=== PATIENT | female | born 1940 | race Caucasian/White ===

== ENCOUNTER → 2016-07-16 | Outpatient (CLI) | payer BC ==
[~2016-07-16] MED LIST: COZAAR100 MG PO; FISH OIL 1000MG1 CAP PO; MULTI VITAMINS1 TAB PO; VITAMINC1000TA; ZOCOR 40MG40 MG PO
== END ==
LOC: MC.RAD 09:22
DX: Z12.31 Encounter for screening mammogram for malignant neoplasm of breast (principal)

== ENCOUNTER → 2017-08-27 | Outpatient (CLI) | payer BC | LOC: MC.RAD 08:48 | DX: Z12.31 Encounter for screening mammogram for malignant neoplasm of breast (principal) ==

== ENCOUNTER 2018-04-22 11:34 | Emergency (ER) | payer BC ==
[~2018-04-22] VITALS: Ht 154.9 cm; Wt 61.4 kg
[2018-04-22] MEDS ORDERED: ADVIL200 MG PO (11:51)
[2018-04-22] MEDS ORDERED: HCTZ 25MG TAB25 MG PO (12:34)
[2018-04-22 12:39] VITALS: BP 133/73; PULSE 73; TEMP 97.3
== END 2018-04-22 12:39 | disposition home or self-care (01) ==
LOC: COL.ER 11:34
DX: I10 Essential (primary) hypertension (principal); E78.00 Pure hypercholesterolemia, unspecified

== ENCOUNTER → 2018-09-05 | Outpatient (CLI) | payer BC ==
[~2018-09-05] MED LIST changes: +ADVIL200 MG PO; +HCTZ 25MG TAB25 MG PO
== END ==
LOC: MC.RAD 09:50
DX: Z12.31 Encounter for screening mammogram for malignant neoplasm of breast (principal)

== ENCOUNTER 2023-11-22 14:23 | Emergency (ER) | payer MEDICARE, BC ==
[~2023-11-22] VITALS: Ht 157.5 cm; Wt 63.6 kg
[~2023-11-22 14:23] MED LIST changes: +ALEVE PM PO; +APRESOLINE 10MG10 MG PO; +LASIX 20MG TABL20 MG PO; +NORVASC 5MG5 MG/TAB PO; +PRILOTC PO; +ZOFRAN ODT4 MG PO
[2023-11-22 14:35] VITALS: TEMP 97.8
[2023-11-22 16:12] LABS: COLLECTION METHOD CLEAN CATCH
[2023-11-22 16:17] LABS: PH 6.5 (5.0-8.5); URINE APPEARANCE CLEAR (CLEAR/HAZY); URINE BLOOD NEGATIVE (NEGATIVE); URINE COLOR YELLOW (YELLOW); URINE GLUCOSE NEGATIVE (NEGATIVE); URINE KETONE NEGATIVE (NEGATIVE); URINE NITRATE NEGATIVE (NEGATIVE); URINE PROTEIN(semi-quant) NEGATIVE (NEGATIVE); URINE UROBILINOGEN 0.2 E.U/dL (0.2-1.0)
[2023-11-22 17:21] VITALS: BP 153/74; PULSE 78
== END 2023-11-22 17:21 | disposition home or self-care (01) ==
LOC: COL.ER 14:23
PROVIDERS: Physician Assistant
DX: N39.0 Urinary tract infection, site not specified (principal)

== ENCOUNTER → 2023-12-03 | Outpatient (CLI) | payer MEDICARE, BC | LOC: COL.RAD 09:59 | DX: N26.1 Atrophy of kidney (terminal) (principal) ==

== ENCOUNTER 2023-12-12 16:35 | Emergency (ER) | payer MEDICARE, BC ==
[~2023-12-12] VITALS: Ht 157.5 cm; Wt 61.4 kg
[2023-12-12 16:41] VITALS: TEMP 98
[2023-12-12 18:02] VITALS: BP 168/78; PULSE 77
== END 2023-12-12 18:02 | disposition home or self-care (01) ==
LOC: COL.ER 16:35
DX: R33.9 Retention of urine, unspecified (principal)
CPT/HCPCS: 31860; A4314